=== PATIENT | female | born 1975 | race Caucasian/White ===

== ENCOUNTER → 2018-01-25 | Outpatient (CLI) | payer BC ==
[2015-12-21 08:29] VITALS: BP 105/72
[~2018-01-25] MED LIST: IBUP-1027 PO
--- NOTE | 2018-01-25 11:47 | KCIC ---
MRI of the sacrum/coccyx without contrast 01/25/2018 CLINICAL HISTORY: Increased sacral/coccygeal pain with inability to sit. TECHNIQUE: Unenhanced T1-weighted and fat-saturated T2-weighted sagittal, axial and coronal images of the sacrum/coccyx were obtained. FINDINGS: The marrow signal of the sacrum/coccyx is within normal limits. No occult fracture is seen. The SI joints are within normal limits bilaterally. The visualized sacral nerve roots are within normal limits. No abnormal soft tissue mass or fluid collection is seen. IMPRESSION: Negative study. Electronically signed by: Zachery Hicks MD (01/25/2018 11:43 AM) [id number]
== END | disposition home or self-care (01) ==
LOC: KCIC MRI 09:48
PROVIDERS: ATTEND Nurse Practitioner Family
DX: M53.3 Sacrococcygeal disorders, not elsewhere classified (principal)
CPT/HCPCS: 72195